=== PATIENT | male | born 1980 | race African-American/Black ===

== ENCOUNTER 2024-02-25 22:44 | Emergency (ER) | payer SELFPAY | END 2024-02-26 00:52 | disposition home or self-care (01) | LOC: CSHERS 22:44 | DX: S62.002A Unspecified fracture of navicular [scaphoid] bone of left wrist, initial encounter for closed fracture (principal); S52.132A Displaced fracture of neck of left radius, initial encounter for closed fracture; F17.210 Nicotine dependence, cigarettes, uncomplicated; X58.XXXA Exposure to other specified factors, initial encounter | CPT/HCPCS: 29105 ==